=== PATIENT | male | born 1985 | race Caucasian/White ===

== ENCOUNTER 2018-04-05 12:33 | Inpatient (IN) | payer OTHER ==
[~2018-04-05] VITALS: Ht 170.2 cm; Wt 100.0 kg
--- NOTE | 2018-04-05 14:10 | ED AMS/SEIZURE/WEAK/DIZZY ---
History of Present Illness General Chief Complaint: Seizure Stated Complaint: BIBA SEIZURE Source: patient Exam Limitations: no limitations Vital Signs & Intake/Output Vital Signs & Intake/Output Vital Signs Date Time Temp Pulse Resp B/P B/P Pulse O2 O2 Flow FiO2 Mean Ox Delivery Rate 04/07 0643 97.9 74 18 114/74 97 ED Intake and Output 04/08 0000 04/07 1200 Intake Total 240 Output Total Balance 240 Intake, Oral 240 Allergies Coded Allergies: Cephalosporins (Mild, HIVES 04/05/18) Reconcile Medications Levetiracetam 250 MG TABLET 750 MG PO BID seizures Triage Note: PT BIBA FROM HOME C/C SEIZURE WITNESSED BY GIRLFRIEND. PT HAD FIRST SEIZURE EVER LAST NIGHT, SEEN FOR SAME AT AND D/C. DENIES ETOH USE. + HEADACHE 04/24. STATES SEIZURE OCCURED WHILE SLEEPING LAST ABOUT 2 MINS PER GF. DENIES FALL OR TRAUMATIC INJURY. Triage Nurses Notes Reviewed? yes Onset: Abrupt Duration: hour(s):, intermittent Timing: multiple episodes today Severity: severe HPI: Patient presents for evaluation of a grand mal seizure. Patient was evaluated in the emergency department a few hours ago but had reassuring evaluation. Patient had a second seizure prompting the current emergency department visit. Patient has no known seizure disorder. Past History Travel History Traveled to [place] past 21 day No Medical History Any Pertinent Medical History? see below for history Neurological: seizure Surgical History Surgical History: non-contributory Psychosocial History What is your primary language Slovenian Tobacco Use: Current Daily Use Daily Tobacco Use Amount/Type: => 5 Cigarettes daily Family History Hx Contributory? No Review of Systems Review of Systems Constitutional: Reports: no symptoms. EENTM: Reports: no symptoms. Respiratory: Reports: no symptoms. Cardiovascular: Reports: no symptoms. GI: Reports: no symptoms. Genitourinary: Reports: no symptoms. Musculoskeletal: Reports: no symptoms. Skin: Reports: no symptoms. Neurological/Psychological: Reports: petit mal seizures. Hematologic/Endocrine: Reports: no symptoms. Immunologic/Allergic: Reports: no symptoms. All Other Systems: Reviewed and Negative Physical Exam Physical Exam General Appearance: SEE BELOW Comments: Gen.: Well-nourished, well-developed, no acute respiratory distress. Head: Normocephalic, atraumatic. Eyes: Normal inspection bilaterally Ears: Normal inspection bilaterally Nose: Normal inspection Throat/mouth : Moist mucosa Neck: Supple, full range of motion, no goiter Heart: Regular rate and rhythm, no murmurs rubs or gallops Lungs: Clear to auscultation bilaterally with normal air entry Chest: Nontender Back: Normal range of motion Abdomen: Soft, nontender, nondistended, normal bowel sounds Extremities: Normal range of motion grossly, equal radial pulses, no cyanosis clubbing or edema Neurologic: Cranial nerves grossly intact, speech is clear Skin: warm and dry Psychiatric: Calm, cooperative, no apparent delusions or hallucinations Core Measures ACS in differential dx? No CVA/TIA Diagnosis No Sepsis Present: No Sepsis Focused Exam Completed? No Progress Differential Diagnosis: CVA/stroke, dehydration, electrolyte imbalance, hypoglycemia, hypoxia, intracranial mass/tumor, seizure disorder Plan of Care: Orders Procedure Date/time Status Discharge Patient 04/07 UNK Active Laboratory Tests 04/07/18 0708: Anion Gap 12, Estimated GFR > 60, BUN/Creatinine Ratio 16.3, CBC w Diff NO MAN DIFF REQ, RBC 5.52, MCV 83.2, MCH 28.6, MCHC 34.3, RDW 13.1, MPV 8.9, Gran % 64.4, Lymphocytes % 26.4, Monocytes % 7.6, Eosinophils % 1.1, Basophils % 0.5, Absolute Granulocytes 5.1, Absolute Lymphocytes 2.1, Absolute Monocytes 0.6, Absolute Eosinophils 0.1, Absolute Basophils 0 Initial ED EKG: none Comments: 04/05/2018 3:54:41 PM I have updated Scott and family on test results. Initially he felt he might want to go to [facility] for any admission but he has decided against this. I discussed this case with Dr. Healy who recommended loading dose of Keppra, 1000 mg. 04/05/2018 4:12:12 PM patient's case discussed with Dr. Russell. Departure Departure Disposition: STILL A PATIENT Condition: Stable Clinical Impression Primary Impression: New onset seizure Referrals: Patient Has No Primary Care Dr (PCP/Family) Departure Forms: Customer Survey General Discharge Information Prescriptions: Current Visit Scripts Levetiracetam 750 MG PO BID #60 TAB Ref 1 Admission Note Spoke With: Drew WANG,Valdo Documentation of Exam: Documentation of any treatments & extenuating circumstances including Concerns Regarding Discharge (functional status, medication knowledge or non-compliance, living conditions, etc.) that warrant an admission rather than observation: Patient has had now 2 seizures with no prior history of seizure disorder. He is a poor candidate for outpatient management given the 2 seizures within such a short period of time. He would place himself that I risk of injury is outpatient treatment were attempted. i Feel he now requires hospitalization for initiation of antiepileptic medication, neurology consultation, follow-up MRI scan and EEG. I feel he will require a multiple day hospitalization.
--- NOTE | 2018-04-05 16:24 | History & Physical ---
Juan Pablo WANG,Yamileth 04/05/18 1623: General Information and HPI MD Statement: I have seen and personally examined MAILE ALDANA and documented this H&P. The patient is a 32 year old M who presented with a patient stated chief complaint of [seizures]. History of Present Illness: 32-year-old gentleman with no past medical history came to [facility] with complaints of 2 episodes of witnessed seizure at home. Apparently patient was in usual state of health until last night, patient had dinner with his girlfriend had slept at 9 PM. 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 Patient's girlfriend noticed him having generalized tonic-clonic seizures involving all 4 limbs at around 3 AM. This episode lasted for 3-4 minutes. No history of any tongue bite, incontinence of bowel or bladder during the same time. After the episode patient was completely confused for 40 minutes until EMS arrived. He was awake and alert but confused. Patient was brought to [facility] during the same time and had a CAT scan which was found to be normal and then sent home to follow-up with the neurologist as outpatient. Patient went home and had breakfast smoked weed and cigarettes and then slept. Patient was found to having another episode of generalized tonic-clonic and she is a retired unknown of lesser intensity compatible the previous one according to the girlfriend. Patient recorded the second episode. [Resident and myself saw the video, which looks like patient had generalized tonic-clonic seizure] After the episode patient had slurring of speech and was still confused. He was brought immediately to the [facility]. According to the girlfriend, mother was at the bedside he never had these kind of episodes in the past not assessed child. He denied nausea, vomiting, abdominal pain, headache, dizziness, palpitations, chest pain. He endorses olfactory hallucination. He denies any trauma to the head or fall. No history of any recent loss of consciousness. No history of any IV drug abuse or change in medication or [id number] medication use. Allergies/Medications Allergies: Coded Allergies: Cephalosporins (Mild, HIVES 04/05/18) Home Med list No Known Home Medications Compliance With Home Meds: GOOD Past History Travel History Traveled to [place] past 21 day No Medical History Neurological: seizure Cardiovascular: NONE Respiratory: NONE Gastrointestinal: NONE Hepatic: NONE Musculoskeletal: NONE Surgical History Surgical History: non-contributory Past Family/Social History Family History Relations & Conditions if any grand father (Prostate cancer). Psychosocial History Where do you live? Home Who Do You Live With? GIRL FRID Services at Home: None Primary Language: Turkmen Smoking Status: Current Everyday Smoker ETOH Use: alcoholic Functional Ability ADLs Independent: dressing, eating, toileting, bathing. Ambulation: independent IADLs Independent: shopping, housework, finances, food prep, telephone, transportation , medication admin. Review of Systems Review of Systems Constitutional: Reports: no symptoms. Cardiovascular: Reports: no symptoms. Respiratory: Reports: no symptoms. GI: Reports: no symptoms. Genitourinary: Reports: no symptoms. Exam & Diagnostic Data Last 24 Hrs of Vital Signs/I&O Vital Signs Date Time Temp Pulse Resp B/P B/P Pulse O2 O2 Flow FiO2 Mean Ox Delivery Rate 04/05 1452 97.9 84 18 128/81 97 Room Air Room Air 04/05 1235 96.7 86 16 131/71 94 Room Air Intake & Output 04/05 1600 04/05 0800 04/05 0000 Intake Total 0 Output Total 0 Balance 0 Intake, Oral 0 Output, Urine 0 Patient 220 lb Weight Weight Reported by Patient Measurement Method Physical Exam General Appearance Alert, Oriented X3, Cooperative, No Acute Distress Cardiovascular Regular Rate, Normal S1, Normal S2, No Murmurs Lungs Clear to Auscultation Abdomen Soft, No Tenderness, No Hepatospenomegaly Neurological Normal Speech, Strength at 5/5 X4 Ext, Normal Tone, Sensation Intact Extremities No Edema Diagnostic Data Other Results Head CT There is no evidence of acute intracranial hemorrhage or territorial infarction. No abnormal mass effect or midline shift is seen. Ugarte to white matter differentiation is well preserved. No extra-axial fluid collections are identified. The ventricles are normal in size. There is no abnormal attenuation within the brain parenchyma. The osseous structures and soft tissues are normal. The mastoid air cells and visualized portions of the paranasal sinuses are well aerated. Assessment/Plan Assessment: 32-year-old gentleman with no past medical history came to [facility] ER with complaints of 2 episodes of witnessed seizure at home Admission vitals Temperature 97.9, pulse rate 84, respiratory rate 18, blood pressure 128/81, saturating 97 at room air Admission labs WBC 8.3, hemoglobin 16, hematocrit 47.6, platelet count 246, sodium 140, potassium 5.5, BU and 13, creatinine 0.9, glucose 125, calcium 9.6 total bilirubin 0.4, AST 27, AST 49. Imaging No acute intracranial pathology. Assessment and plan New onset seizures * Admitted in general medical floor * New onset seizures-Seizure precaution all time. At this point the reason is unknown. Patient denies any recent medication use, IV drug abuse though states he smokes weed every day, no history of any head trauma, no family history, no past history of any seizures, denies fall. * Continue IV Keppra and switch to 750 mg Keppra twice a day * EEG and MRI with and without gadolinium tomorrow morning * Regular diet * Full code * DVT prophylaxis-Alps As Ranked By This Provider Problem List: 1. Seizure Core Measures/Misc (08/01) Acute Coronary Syndrome ACS Diagnosis: No Congestive Heart Failure Congestive Heart Failure Diagnosis No Cerebrovascular Accident CVA/TIA Diagnosis: No VTE (View Protocol) VTE Risk Factors Age>40 No Mechanical VTE Prophylaxis d/t Other No VTE Pharm Prophylaxis d/t Other Sepsis (View protocol) Sepsis Present: No If YES complete Sepsis Event Note If YES complete Sepsis Event Note Alyce Dixon MD 04/05/18 2459: Core Measures/Misc (08/01) Sepsis (View protocol) If YES complete Sepsis Event Note If YES complete Sepsis Event Note Resident Review Statement Resident Statement: examined this patient, discussed with social media intern, agreed with social media intern Other Findings: Patient is a 32-year-old male brought by ambulance from home after having 2 episodes of witnessed seizure. H istory was taken from the mother, girlfriend and the patient. According to them patient recently had a viral infection on 3 weeks ago but recovered completely. 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 He was comfortable whole of the day denies any dizziness, head injury. He slept around 9:00 without any difficulty. Around 3:00 he had an episode of generalized body movement followed by confusion for 40-45 minutes. he was very confused as a girlfriend called 911 and bring him to [facility] ED. His vitals were stable and CT scan was negative for any acute intracranial pathology so he was discharged with advised to follow-up with neurologist as an outpatient. Patient went home. He was having headache and took a couple of tablets of ibuprofen. He smoked weed, played computer game and slept around 10 or 1030 around noon time. he had again an episode of generalized tonic-clonic seizure. He was brought back to the hospital for further evaluation and management. Denies history of alcohol abuse. He denies any fever, neck stiffness, nausea, vomiting, palpitation. He does smoke read but denies any cocaine or alcohol abuse. He was smoking before but quit since couple of years. ED course - Vital signs at the time of admission-temperature 96.7, pulse 86, respiratory rate 16, blood pressure 131/71, SPO2 94% on room air. On examination-he was conscious, cooperative, oriented to time place and person. Oral Cavity- moist, neck -supple, no neck stiffness, chest clear, heart S1-S2 normal, on neurological examination he is able to move all his limbs, all cranial nerves intact, plantar flexor, sensation intact, olfactory hallucinations present. Blood workup -WBC 8.3, RBC 5.70, hemoglobin 16.0, hematocrit 47.9, platelet count 246, chronicity 81.5, serum sodium 140, potassium 4.5, chloride 107, carbon 23, anion gap 10, BUN 13, creatinine 0.9, glucose 125, calcium 9.6, total bilirubin 0.4 AST 27, ALT 49, alkaline phosphatase 65, albumin 4.7, urinalysis- urine light in color, protein 30, ketones negative, nitrite negative, WBC 1-3, bacteria few CT scan of the head-no acute intracranial pathology Dr. Healy was called, and he advised to start patient on injection levetiracetam 1 g every 12. Assessment and plan - Patient is a 32-year-old male with no significant past medical history presented with chief complaints of new onset seizure generalized tonic-clonic; 2 episodes without any residual neurological deficit. CT scan of the head did not show any acute intraocular pathology. Blood workup did not show any evidence of electrolyte imbalance including, hyponatremia, hypocalcemia. He does have a history of viral infection 3 weeks ago and did not take any treatment. Physical examination did not show any evidence of meningitis or meningeal irritation. He does have cats at home but they are never been sick and CT scan was negative for any intracranial space-occupying lesion. He was also complaining of olfactory hallucination probably frontal bone or temporal lobe involvement. New-onset seizure -? Etiology * We will admit the patient to general medicine floor * Neuro check every 4 hourly * Head end of the bed elevation * Aspiration and seizures precaution * Follow neurology recommendation * Tablet Keppra 750 mg twice daily * EEG/MRI of the brain tomorrow DVT prophylaxis-ALPs/heparin CODE STATUS -Full code Diet-regular diet Drew WANG,Valdo 04/05/18 1834: Core Measures/Misc (08/01) Sepsis (View protocol) If YES complete Sepsis Event Note If YES complete Sepsis Event Note Attending MD Review Statement Attending Statement Attending MD Statement: examined this patient, discuss w/resident/PA/INTERNATIONAL FLIGHT ATTENDANT, agreed w/resident/PA/INTERNATIONAL FLIGHT ATTENDANT, discussed with family, reviewed EMR data (avail), discussed with nursing Attending Assessment/Plan: Patient seen and examined. Plan of care discussed with the medical team and the patient. Available lab work and radiology test reports were reviewed. Patient' s family was at the bedside. In summary this is a previously healthy 32-year- old male with history of marijuana use who presents with the second episode of seizure during sleep without having any history of prior recent head trauma. He does not drink but does smoke. His vital signs were stable. Neuro exam is nonfocal. CT scan is unremarkable. Case was discussed with Dr. Healy and family. Plan is to admit patient to general medical floor. He has been loaded with Keppra. We will continue oral Keppra. Patient will need EEG in a.m. and MRI of the brain with and without gadolinium. Seizure precautions. Family was informed that patient cannot drive for at least 6 month.
--- NOTE | 2018-04-05 17:10 | Cons- Neurology ---
General Information and HPI Consulting Request Date of Consult: 04/05/18 Requested By: Drew WANG,Valdo Reason for Consult: New onset seizures Source of Information: patient, family Exam Limitations: no limitations History of Present Illness: 32/M came to ER with a first seizure which occurred about 3:30 AM in sleep, initial evaluation OK and discharged for out-pt evaluation. At home took a nap and again in sleep had a second witnessed seizure. His took a video showing a generalized tonic-clonic seizure. On return to ER and after discussion Keppra loading started. No prior CONE FORMER Hx, no head injuries, febrile convulsions or family history of epilepsy. Denies any ETOH or recreational drugs other than MJ Flu like illness 2-3 weeks ago but fully recovered and no antihistamines in > 10days Allergies/Medications Allergies: Coded Allergies: Cephalosporins (Mild, HIVES 04/05/18) Home Med List: No Known Home Medications Current Medications: Current Medications Sig/Eric Start time Last Medication Dose Route Stop Time Status Admin Levetiracetam 1,000 MG Q12 04/05 2100 UNVr 04/05 N/A 1 UNIT IV 1656 Review of Systems Review of Systems: Arthralgias and myalgias, widespread. 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 about 220 pounds neck supple, shoulder ROM normal, no compartment syndromes alert, fully oriented, language speech and cognition OK fundi, VF EOM Pupils normal lower CN normal motor power and tone, coordination, reflexes and sensory screen normal gait not tested Last 48 Hours of Lab Results: CBC, chemistry screen, UA normal. Tox screen normal except cannabis >80 Imaging/Other Studies: CT Head There is no evidence of acute intracranial hemorrhage or territorial infarction. No abnormal mass effect or midline shift is seen. Ugarte to white matter differentiation is well preserved. No extra-axial fluid collections are identified. The ventricles are normal in size. There is no abnormal attenuation within the brain parenchyma. The osseous structures and soft tissues are normal. The mastoid air cells and visualized portions of the paranasal sinuses are well aerated. IMPRESSION: No acute intracranial pathology. Assessment/Plan Assessment: New onset seizures, two events same day, both out of sleep, normal exam, CT, negative history Recommendations: EEG MRI with and without mary kay Keppra loading 1000 mg then 750 mg BID if seizure free 24 h on medication consider discharge for further outpatient workup patient instructed not to drive or swim, duration to be determined Consult Acknowledgment - Thank you for your consult request.
[2018-04-05 18:00] VITALS: BP 140/92
--- NOTE | 2018-04-05 18:37 | Admission Certification ---
Admission Certification Certification Statement - As attending physician, I certify that at the time of - admission, based on clinical presentation, severity of - symptoms, need for further diagnostic testing and - therapeutic interventions, and risk of adverse outcomes - without in-hospital treatment, in my clinical assessment, - this patient requires an acute hospital stay for a minimum - of two nights or longer. I have also considered psychsocial - factors such as support system, advanced age, financial - issues, cognitive issues, and failed out-patient treatments, - past re-admission history, safety of patient, and lack of - compliance as applicable. Specific rationale supporting this admission is: New recurrent seizure
--- NOTE | 2018-04-05 19:25 | Patient Discharge Instructions ---
Discharge Instructions General Discharge Information You were seen/treated for: New onset seizures Special Instructions: Please follow-up with your primary care provider/neurologist within 1-2 weeks of discharge patient instructed not to drive or swim, duration to be determined. Please follow-up with neurologist and do outpatient 24-hour EEG. Diet Continue normal diet: No Recommended Diet: Regular Activity Full Activity/No Limits: No Activity Self Limited: Yes Acute Coronary Syndrome Inclusion Criteria At DC or during hospital stay patient has or had the following: ACS DIAGNOSIS No Discharge Core Measures Meds if any: Prescribed or Continued at Discharge Meds if any: NOT Prescribed or Continued at Discharge Congestive Heart Failure Inclusion Criteria At DC or during hospital stay patient has or had the following: CHF DIAGNOSIS No Discharge Core Measures Meds if any: Prescribed or Continued at Discharge Meds if any: NOT Prescribed or Continued at Discharge Cerebrovascular accident Inclusion Criteria At DC or during hospital stay patient has or had the following: CVA/TIA Diagnosis No Discharge Core Measures Meds if any: Prescribed or Continued at Discharge Meds if any: NOT Prescribed or Continued at Discharge Venous thromboembolism Inclusion Criteria VTE Diagnosis No VTE Type NONE VTE Confirmed by (Test) NONE Discharge Core Measures - Per Current guidelines, there needs to be overlap - treatment for the first 5 days of Warfarin therapy. - If discharged on Warfarin prior to 5 days of - overlap therapy, the patient will need to be - assessed for post discharge needs including - *Post discharge parental anticoagulation - *Warfarin and/or parental anticoagulation education - *Follow up date to check INR post discharge At least 5 days overlap therapy as Inpatient No Meds if any: Prescribed or Continued at Discharge Note: Overlap Therapy is Warfarin and Anticoagulant Meds if any: NOT Prescribed or Continued at Discharge
[2018-04-05 21:43] VITALS: BP 118/70
[2018-04-06 06:24] VITALS: BP 112/70
--- NOTE | 2018-04-06 07:40 | PN- Housestaff ---
Juan Pablo WANG,Yamileth 04/06/18 0740: Subjective Follow-up For: seizures Subjective: Patient seen and examined at bedside. No events. Patient denies any further episodes of seizure, loss of consciousness, fall, weakness, altered sensation. Review of Systems Constitutional: Reports: no symptoms, see HPI. Objective Last 24 Hrs of Vital Signs/I&O Vital Signs Date Time Temp Pulse Resp B/P B/P Pulse O2 O2 Flow FiO2 Mean Ox Delivery Rate 04/06 0624 98.2 72 18 112/70 96 Room Air 04/05 2143 98.9 78 18 118/70 95 Room Air 04/05 1800 98.0 82 18 140/92 96 Room Air 04/05 1735 98.8 78 16 132/74 97 Room Air 04/05 1452 97.9 84 18 128/81 97 Room Air Room Air 04/05 1235 96.7 86 16 131/71 94 Room Air Intake & Output 04/06 1600 04/06 0800 04/06 0000 Intake Total 360 Output Total Balance 360 Intake, Oral 360 Patient 221 lb Weight Weight Bed scale Measurement Method Physical Exam General Appearance: Alert, Oriented X3, Cooperative, No Acute Distress Cardiovascular: Regular Rate, Normal S1, Normal S2, No Murmurs Lungs: Normal Air Movement Abdomen: Soft, No Tenderness, No Hepatospenomegaly Neurological: Normal Speech, Strength at 5/5 X4 Ext, Normal Tone, Sensation Intact Current Medications: Current Medications Sig/Eric Start time Last Medication Dose Route Stop Time Status Admin Acetaminophen 650 MG Q6 04/06 1200 AC PO Acetaminophen 650 MG ONCE ONE 04/05 2315 DC 04/05 PO 04/05 2316 2353 Levetiracetam 1,000 MG Q12 04/05 2100 DC 04/05 N/A 1 UNIT IV 1656 Levetiracetam 750 MG BID 04/05 2100 AC 04/06 PO 0837 Patient Medication 1 ED ONE ONE 04/06 1145 DC 04/06 Teaching ED 04/06 1146 1235 Last 24 Hrs of Lab/Rj Results Last 24 Hrs of Labs/Mics: Laboratory Tests 04/06/18 0700: Anion Gap 14, Estimated GFR > 60, BUN/Creatinine Ratio 12.5, CBC w Diff NO MAN DIFF REQ, RBC 5.43, MCV 83.6, MCH 28.8, MCHC 34.4, RDW 13.1, MPV 9.3, Gran % 73.7, Lymphocytes % 20.2 L, Monocytes % 5.6, Eosinophils % 0.3, Basophils % 0.2 , Absolute Granulocytes 7.8 H, Absolute Lymphocytes 2.1, Absolute Monocytes 0.6 , Absolute Eosinophils 0, Absolute Basophils 0 Assessment/Plan Assessment: Patient is a 32-year-old male with no significant past medical history presented with chief complaints of new onset seizure generalized tonic-clonic Assessment and plan New onset seizure * Seizure precaution at all time. Patient had an MRI and EEG today which was normal. Patient was seen by neurologist who suggested to take Keppra 750 twice a day and follow with outpatient EEG and neurology as outpatient within 1-2 weeks. * Continue Keppra 750 twice a day. * Code-full code * Diet-regular diet Problem List: 1. New onset seizure Pain Ratin Pain Location: none Pain Goal: Remain pain free Pain Plan: tylenol Tomorrow's Labs & Rationales: cbc,bep Sunny WANG,Shahida 04/06/18 1201: Attending MD Review Statement Attending Statement Attending MD Statement: examined this patient, discuss w/resident/PA/ORACLE SOA ARCHITECT, agreed w/resident/PA/ORACLE SOA ARCHITECT, discussed with family, reviewed EMR data (avail), discussed with nursing, discussed with case mgmt, reviewed images, amended to note Attending Assessment/Plan: Patient seen and examined, says that he's having soreness in his muscles everywhere. Patient is admitted with 2 witnessed seizures in the same day. Vital Signs Date Time Temp Pulse Resp B/P B/P Pulse O2 O2 Flow FiO2 Mean Ox Delivery Rate 04/06 0624 98.2 72 18 112/70 96 Room Air 04/05 2143 98.9 78 18 118/70 95 Room Air 04/05 1800 98.0 82 18 140/92 96 Room Air 04/05 1735 98.8 78 16 132/74 97 Room Air 04/05 1452 97.9 84 18 128/81 97 Room Air Room Air 04/05 1235 96.7 86 16 131/71 94 Room Air on exam; aox3, nad. cv; s1,s2, rrr resp;clear abd; soft, nt, bs+ exxt; no edema Laboratory Tests 04/06 0700 Chemistry Sodium (137 - 145 mmol/L) 142 Potassium (3.5 - 5.1 mmol/L) 3.4 L Chloride (98 - 107 mmol/L) 105 Carbon Dioxide (22 - 30 mmol/L) 22 Anion Gap (5 - 16) 14 BUN (9 - 20 mg/dL) 10 Creatinine (0.7 - 1.2 mg/dL) 0.8 Estimated GFR (>60 ml/min) > 60 BUN/Creatinine Ratio (7 - 25 %) 12.5 Hematology CBC w Diff NO MAN DIFF REQ WBC (4.8 - 10.8 /CUMM) 10.6 RBC (4.70 - 6.10 /CUMM) 5.43 Hgb (14.0 - 18.0 G/DL) 15.6 Hct (42 - 52 %) 45.4 MCV (80.0 - 94.0 FL) 83.6 MCH (27.0 - 31.0 PG) 28.8 MCHC (33.0 - 37.0 G/DL) 34.4 RDW (11.5 - 14.5 %) 13.1 Plt Count (130 - 400 /CUMM) 214 MPV (7.4 - 10.4 FL) 9.3 Gran % (42.2 - 75.2 %) 73.7 Lymphocytes % (20.5 - 51.1 %) 20.2 L Monocytes % (1.7 - 9.3 %) 5.6 Eosinophils % (0 - 5 %) 0.3 Basophils % (0.0 - 2.0 %) 0.2 Absolute Granulocytes (1.4 - 6.5 /CUMM) 7.8 H Absolute Lymphocytes (1.2 - 3.4 /CUMM) 2.1 Absolute Monocytes (0.10 - 0.60 /CUMM) 0.6 Absolute Eosinophils (0.0 - 0.7 /CUMM) 0 Absolute Basophils (0.0 - 0.2 /CUMM) 0 A/P; 32-year-old male with no significant past history admitted with 2 witnessed seizures in the same day. Patient has used the on the same day. Off note he has been playing video games up to 10 hours a day according to the report from the girlfriend. Patient scheduled to get brain MRI today. He also received EEG and the results are pending. Currently he is getting Keppra. Has been seen by neurology and they recommended no driving or swimming for the duration that will be determined depending on his course. But usually just for 3-6 months if patient remains seizure free on medications. Patient on seizure precautions. DVT px; ALPS. D/W family at bedside.
[2018-04-06 08:16] LABS: ABSOLUTE BASOPHIL COUNT 0 /CUMM (0.0-0.2); ABSOLUTE EOSINOPHIL COUNT 0 /CUMM (0.0-0.7); ABSOLUTE GRANULOCYTE CT 7.8 /CUMM (1.4-6.5); ABSOLUTE LYMPH COUNT 2.1 /CUMM (1.2-3.4); ABSOLUTE MONOCYTE COUNT 0.6 /CUMM (0.10-0.60); BASOPHIL % 0.2 % (0.0-2.0); EOSINOPHIL % 0.3 % (0-5); GRANULOCYTE % 73.7 % (42.2-75.2); HEMATOCRIT 45.4 % (42-52); MEAN CORPUSCULAR HGB 28.8 PG (27.0-31.0); MEAN CORPUSCULAR HGB CONC 34.4 G/DL (33.0-37.0); MEAN CORPUSCULAR VOLUME 83.6 FL (80.0-94.0); MEAN PLATELET VOLUME 9.3 FL (7.4-10.4); PLATELET COUNT 214 /CUMM (130-400); RBC DISTRIBUTION WIDTH 13.1 % (11.5-14.5); RED BLOOD CELL CT 5.43 /CUMM (4.70-6.10); WHITE BLOOD CELL COUNT 10.6 /CUMM (4.8-10.8)
--- NOTE | 2018-04-06 12:20 | MRI REPORT ---
EXAMINATION: MR BRAIN WITHOUT AND WITH CONTRAST CLINICAL INFORMATION: 32-year-old man with seizures. COMPARISON: 04/05/[address] TECHNIQUE: MRI of the brain was obtained using routine sequences before and after the intravenous administration of 10 mL of Gadavist. FINDINGS: The hippocampi are symmetric in size, contour, and signal intensity, demonstrating no convincing imaging evidence of mesial temporal sclerosis. The temporal horns appear symmetric. No focal reduced diffusion is seen to suggest acute or subacute cerebral ischemia. No intracranial mass, intracerebral edema, intra-axial blood products, midline shift, or extra-axial collection is visualized. No pathologic enhancement is appreciated on postcontrast sequences. The ventricles and sulcal spaces appear normal. Normal arterial and venous vascular flow voids are present. Mucus retention cysts are seen in the maxillary and sphenoid sinuses and there is layering foamy fluid in the left maxillary sinus as well. Incidental note is made of arrested pneumatization of the sphenoid bone. IMPRESSION: Normal MR appearance of the brain and temporal lobes.
[2018-04-06 14:26] VITALS: BP 112/56
--- NOTE | 2018-04-06 14:44 | ELECTROENCEPHALOGRAM REPORT ---
Electroencephalogram Report Electroencephalogram Results Date of service: 04/05/18 Attending MD: Shahida Correa MD Sculpture Instructor: Jose A Del Cid EEG Number: [id number] Test Utilizes: 10-20 system, 21 lead 18 channel digital recording Pertinent Hx/Physical/Neuro Findings/Clin Diagnosis: New onset seizures Inpatient Medications: Current Medications Sig/Eric Start time Last Medication Dose Route Stop Time Status Admin Acetaminophen 650 MG Q6 04/06 1200 AC PO Acetaminophen 650 MG ONCE ONE 04/05 2315 DC 04/05 PO 04/05 2316 2353 Levetiracetam 1,000 MG Q12 04/05 2100 DC 04/05 N/A 1 UNIT IV 1656 Levetiracetam 750 MG BID 04/05 2100 AC 04/06 PO 0837 Patient Medication 1 ED ONE ONE 04/06 1145 DC 04/06 Teaching ED 04/06 1146 1235 Interpretation: The waking background is 9 hertz posterior alpha with frontally dominant beta, with alpha becoming irregular with intermixed slower theta activity in drowsiness. No focal, lateralized, epileptiform abnormalities or sleep. Hyperventilation and photic stimulation unremarkable Impression: Normal in the states of wakefulness and drowsiness
--- NOTE | 2018-04-06 15:56 | PN- Neurology ---
"Subjective Subjective: No recurrence. No |Keppra side effects Review of Systems: back ache, muscle aches since the seizure Objective Vital Signs and I&Os Vital Signs Date Time Temp Pulse Resp B/P B/P Pulse O2 O2 Flow FiO2 Mean Ox Delivery Rate 04/06 1426 98.6 77 20 112/56 99 Room Air 04/06 0624 98.2 72 18 112/70 96 Room Air 04/05 2143 98.9 78 18 118/70 95 Room Air 04/05 1800 98.0 82 18 140/92 96 Room Air 04/05 1735 98.8 78 16 132/74 97 Room Air Intake & Output 04/06 1600 04/06 0800 04/06 0000 04/05 1600 04/05 0800 04/05 0000 Intake Total 960 360 0 Output Total 0 Balance 960 360 0 Intake, IV Intake, Oral 960 360 0 Output, Urine 0 Patient 221 lb 220 lb Weight Weight Bed scale Reported by Patient Measurement Method Physical Exam: Alert, oriented, language OK EOMI without nystagmus [id number] no focal signs Current Medications: Current Medications Sig/Eric Start time Last Medication Dose Route Stop Time Status Admin Acetaminophen 650 MG Q6 04/06 1200 AC PO Acetaminophen 650 MG ONCE ONE 04/05 2315 DC 04/05 PO 04/05 2316 2353 Levetiracetam 1,000 MG Q12 04/05 2100 DC 04/05 N/A 1 UNIT IV 1656 Levetiracetam 750 MG BID 04/05 2100 AC 04/06 PO 0837 Patient Medication 1 ED ONE ONE 04/06 1145 DC 04/06 Teaching ED 04/06 1146 1235 Results Last 24 Hours of Lab Results: Laboratory Tests 04/06 0700 Chemistry Sodium (137 - 145 mmol/L) 142 Potassium (3.5 - 5.1 mmol/L) 3.4 L Chloride (98 - 107 mmol/L) 105 Carbon Dioxide (22 - 30 mmol/L) 22 Anion Gap (5 - 16) 14 BUN (9 - 20 mg/dL) 10 Creatinine (0.7 - 1.2 mg/dL) 0.8 Estimated GFR (>60 ml/min) > 60 BUN/Creatinine Ratio (7 - 25 %) 12.5 Hematology CBC w Diff NO MAN DIFF REQ WBC (4.8 - 10.8 /CUMM) 10.6 RBC (4.70 - 6.10 /CUMM) 5.43 Hgb (14.0 - 18.0 G/DL) 15.6 Hct (42 - 52 %) 45.4 MCV (80.0 - 94.0 FL) 83.6 MCH (27.0 - 31.0 PG) 28.8 MCHC (33.0 - 37.0 G/DL) 34.4 RDW (11.5 - 14.5 %) 13.1 Plt Count (130 - 400 /CUMM) 214 MPV (7.4 - 10.4 FL) 9.3 Gran % (42.2 - 75.2 %) 73.7 Lymphocytes % (20.5 - 51.1 %) 20.2 L Monocytes % (1.7 - 9.3 %) 5.6 Eosinophils % (0 - 5 %) 0.3 Basophils % (0.0 - 2.0 %) 0.2 Absolute Granulocytes (1.4 - 6.5 /CUMM) 7.8 H Absolute Lymphocytes (1.2 - 3.4 /CUMM) 2.1 Absolute Monocytes (0.10 - 0.60 /CUMM) 0.6 Absolute Eosinophils (0.0 - 0.7 /CUMM) 0 Absolute Basophils (0.0 - 0.2 /CUMM) 0 Recent Imaging Studies: MRI brain without and with mary kay: IMPRESSION: Normal MR appearance of the brain and temporal lobes. 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
[2018-04-06] MEDS ORDERED: LEVETIRACETAM250 M1 PO (16:51)
[2018-04-06 22:28] VITALS: BP 122/78
[2018-04-07 06:43] VITALS: BP 114/74
--- NOTE | 2018-04-07 07:14 | PN- Housestaff ---
Juan Pablo WANG,[facility] 04/07/18 0714: Subjective Follow-up For: seizures Subjective: Patient seen and examined at bedside no overnight events. No complaints. Patient denies further episodes of seizures, loss of consciousness, trauma. Review of Systems Constitutional: Reports: no symptoms, see HPI. Objective Last 24 Hrs of Vital Signs/I&O Vital Signs Date Time Temp Pulse Resp B/P B/P Pulse O2 O2 Flow FiO2 Mean Ox Delivery Rate 04/07 0643 97.9 74 18 114/74 97 04/06 2228 99.2 71 20 122/78 95 Room Air 04/06 1426 98.6 77 20 112/56 99 Room Air Intake & Output 04/07 1600 04/07 0800 04/07 0000 Intake Total 240 Output Total Balance 240 Intake, Oral 240 Physical Exam General Appearance: Alert, Oriented X3, Cooperative, No Acute Distress Cardiovascular: Regular Rate, Normal S1, Normal S2, No Murmurs Lungs: Clear to Auscultation Abdomen: Soft, No Tenderness, No Hepatospenomegaly Neurological: Normal Speech, Strength at 5/5 X4 Ext, Normal Tone, Sensation Intact Current Medications: Current Medications Sig/Eric Start time Last Medication Dose Route Stop Time Status Admin Acetaminophen 650 MG Q6 04/06 1200 AC PO Levetiracetam 750 MG BID 04/05 2100 AC 04/07 PO 0756 Patient Medication 1 ED ONE ONE 04/06 1145 DC 04/06 Teaching ED 04/06 1146 1235 Potassium Chloride 40 MEQ ONCE ONE 04/07 0915 AC PO 04/07 0916 Last 24 Hrs of Lab/Rj Results Last 24 Hrs of Labs/Mics: Laboratory Tests 04/07/18 0708: Sodium Pending, Potassium Pending, Chloride Pending, Carbon Dioxide Pending, Anion Gap Pending, BUN Pending, Creatinine Pending, BUN/Creatinine Ratio Pending , CBC w Diff NO MAN DIFF REQ, RBC 5.52, MCV 83.2, MCH 28.6, MCHC 34.3, RDW 13.1, MPV 8.9, Gran % 64.4, Lymphocytes % 26.4, Monocytes % 7.6, Eosinophils % 1.1, Basophils % 0.5, Absolute Granulocytes 5.1, Absolute Lymphocytes 2.1, Absolute Monocytes 0.6, Absolute Eosinophils 0.1, Absolute Basophils 0 Assessment/Plan Assessment: Patient is a 32-year-old male with no significant past medical history presented with chief complaints of new onset seizure generalized tonic-clonic Assessment and plan New onset seizure * Seizure precaution at all time. Patient had an MRI and EEG today which was normal. Patient was seen by neurologist who suggested to take Keppra 750 twice a day and follow with outpatient EEG and neurology as outpatient within 1-2 weeks. * Continue Keppra 750 twice a day. * Code-full code * Diet-regular diet Patient is educated to avoid seizure triggers like sleep deprivation, too much of video game playing, avoid marijuana, maintain healthy lifestyle. Problem List: 1. New onset seizure Pain Ratin Pain Location: none Pain Goal: Remain pain free Pain Plan: tylenol Tomorrow's Labs & Rationales: none Shahida Correa MD 04/07/18 1157: Attending MD Review Statement Attending Statement Attending MD Statement: examined this patient, discuss w/resident/PA/FOUNTAIN CLERK, agreed w/resident/PA/FOUNTAIN CLERK, discussed with family, reviewed EMR data (avail), discussed with nursing, discussed with case mgmt, reviewed images, amended to note Attending Assessment/Plan: Patient seen and examined, doing well. No further episodes of seizures. MRI brain came out negative for any acute changes. EEG also did not show any evidence of any epileptiform changes. Patient has been maintained on Keppra. Has been followed by neurology. He is medically stable for discharge today. He will follow-up with neurologist as an outpatient. But will arranged any 4 hour EEG as an outpatient. Patient was instructed not to drive or swim and he was instructed to get an enough sleep, avoid longer hours playing video games and avoid that recreational drug use. he should also keep himself well hydrated. patient's father and grandfather sitting at bedside.
[2018-04-07 08:30] LABS: ABSOLUTE BASOPHIL COUNT 0 /CUMM (0.0-0.2); ABSOLUTE EOSINOPHIL COUNT 0.1 /CUMM (0.0-0.7); ABSOLUTE GRANULOCYTE CT 5.1 /CUMM (1.4-6.5); ABSOLUTE LYMPH COUNT 2.1 /CUMM (1.2-3.4); ABSOLUTE MONOCYTE COUNT 0.6 /CUMM (0.10-0.60); BASOPHIL % 0.5 % (0.0-2.0); EOSINOPHIL % 1.1 % (0-5); GRANULOCYTE % 64.4 % (42.2-75.2); HEMATOCRIT 45.9 % (42-52); MEAN CORPUSCULAR HGB 28.6 PG (27.0-31.0); MEAN CORPUSCULAR HGB CONC 34.3 G/DL (33.0-37.0); MEAN CORPUSCULAR VOLUME 83.2 FL (80.0-94.0); MEAN PLATELET VOLUME 8.9 FL (7.4-10.4); PLATELET COUNT 208 /CUMM (130-400); RBC DISTRIBUTION WIDTH 13.1 % (11.5-14.5); RED BLOOD CELL CT 5.52 /CUMM (4.70-6.10)
--- NOTE | 2018-04-07 08:38 | Discharge Summary ---
Visit Information Visit Dates Admission Date: 04/05/18 Discharge Date: 04/07/18 Hospital Course Course Attending Physician: Shahida Correa MD Primary Care Physician: Patient Has No Primary Care Dr Hospital Course: 32-year-old gentleman with no past medical history came to [place] [facility] with complaints of 2 episodes of witnessed seizure at home. Apparently patient was in usual state of health until for admission, apparently patient had dinner with his girlfriend had slept at 9 PM. 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 Patient's girlfriend noticed him having generalized tonic-clonic seizures involving all 4 limbs at around 3 AM. This episode lasted for 3-4 minutes. No history of any tongue bite, incontinence of bowel or bladder during the same time. After the episode patient was alert, awake but completely confused for 40 minutes until EMS arrived. Patient was brought to [facility] during the same time and had a CAT scan which was found to be normal and then sent home to follow-up with the neurologist as outpatient. Patient went home and had breakfast smoked weed and cigarettes and then slept. Patient was found to having another episode of generalized tonic-clonic and she is a retired unknown of lesser intensity compatible the previous one according to the girlfriend. Patient recorded the second episode. [Resident and myself saw the video, which looks like patient had generalized tonic-clonic seizure] After the episode patient had slurring of speech and was still confused. He was brought immediately to the [facility]. According to the girlfriend and mother who was at the bedside, suggested that he never had these kind of episodes in the past not assessed child. He denied nausea, vomiting, abdominal pain, headache, dizziness, palpitations, chest pain. He endorses olfactory hallucination. He denies any trauma to the head or fall. No history of any recent loss of consciousness. No history of any IV drug abuse or change in medication or [id number] medication use. Hospital course Patient was admitted for new onset seizures. Patient was alert, awake, oriented was given a loading dose of Keppra followed by Keppra 750 twice a day. Patient was seen by neurologist who suggested says cryptogenic. Patient will follow with his neurologist as outpatient. He was also suggested to do a 24-hour EEG in few weeks. Patient advised to avoid seizure triggers like sleep deprivation, access alcohol, smoking, marijuana use, excessive video game playing. Patient advised to, Not to drive x 3 months free of recurrence on meds. Patient agrees with the plan and desires to follow-up with a neurologist in 1-2 weeks. Patient said home with Desi. Allergies: Coded Allergies: Cephalosporins (Mild, HIVES 04/05/18) Pertinent Lab Results: MRI brain Normal MR appearance of the brain and temporal lobes. CT head No acute intracranial pathology Disposition Summary Disposition Principal Diagnosis: New onset seizures-cryptogenic Additional Diagnosis: None Discharge Disposition: home or self care Discharge Instructions General Discharge Information Code Status: Full Code Patient's Diet: Regular diet Patient's Activity: As tolerated Follow-Up Instructions/Appts: Please follow-up with your primary care provider and neurologist within 1-2 weeks of discharge Please avoid driving, swimming for next 3 months in follow-up with a neurologist. Medications at Discharge Discharge Medications: Start taking the following new medications: Levetiracetam (Levetiracetam) 250 MG TABLET 750 Milligram ORAL TWICE DAILY Qty = 60 Refills = 1 Comments: Last Taken: 04/07/18 Time: 0800AM Copies To: Kiki Juarez MD
[2018-04-07] MEDS ORDERED: LEVETIRACETAM250 M1 PO (10:00)
== END 2018-04-07 10:35 | DRG 53 ==
LOC: ERH 12:33 → ERHI 16:23 → 2NB 16:23 → CANRESERV 17:03 → ENRESERV 17:03 → ENTRNSPT 17:36 → EDTRNSPTSTS 17:40 → EDTRNSPT 17:40 → 2NB 17:48 → CMPTRNSPT 18:01 → 2NB 04-06 07:35 → ENPENDDIS 04-07 09:50 → 2NB 04-07 10:35
PROVIDERS: Student in an Organized Health Care Education/Training Program
DX: G40.802 Other epilepsy, not intractable, without status epilepticus (principal); F12.90 Cannabis use, unspecified, uncomplicated; F17.210 Nicotine dependence, cigarettes, uncomplicated; Z88.1 Allergy status to other antibiotic agents
CPT/HCPCS: 2NBP; 70552; 36592; 70553; 82436; 95816; A9579; J1953